=== PATIENT | female | born 1955 | race Caucasian/White ===

== ENCOUNTER 2018-02-18 10:21 | Inpatient (IN) | payer BC ==
--- NOTE | 2018-02-10 10:55 | HP ---
HISTORY AND PHYSICAL: DATE OF ADMISSION: 02/18/18 DATE OF OFFICE VISIT: 02/10/18 DATE OF SURGERY: 02/18/18 SURGEON: Tammy Russo MD* (dictated by GALILEA Stone). PROCEDURE: Right total knee arthroplasty. CHIEF COMPLAINT: Right knee pain. HISTORY OF PRESENT ILLNESS: Ms. Quijano is a 62-year-old female with continued complaints of right knee pain. She has failed conservative treatment and elected to proceed with a right total knee arthroplasty, which is scheduled for 02/18/18. PAST MEDICAL HISTORY: 1. Hypertension. 2. Hypothyroidism. PAST SURGICAL HISTORY: 1. x3. 2. Cholecystectomy. 3. Left knee scope. CURRENT MEDICATIONS: 1. Levothyroxine 25 mcg daily. 2. Cozaar 50 mg daily. 3. Hydrochlorothiazide 25 mg daily. 4. Ibuprofen as needed. ALLERGIES: 1. BACTRIM. 2. PENICILLIN. FAMILY HISTORY: Leukemia and coronary artery disease. SOCIAL HISTORY: A 62-year-old female, she lives with her son. She does not smoke or use drugs. Uses occasional alcohol. REVIEW OF SYSTEMS: A complete 14-point review of systems was reviewed with the patient, is positive for hypothyroidism. She denies history of DVT, PE, hepatitis, HIV, or anesthesia problems. PHYSICAL EXAMINATION GENERAL: She is well-developed, well-nourished, in no acute distress. VITAL SIGNS: She stands 5 feet 5 inches tall, weighs 200 pounds. Blood pressure is 128/84, heart rate 56. HEENT: Normocephalic, atraumatic. NECK: Supple. No palpable lymph nodes. PULMONARY: The lungs are clear to auscultation bilaterally. CARDIAC: Regular rate and rhythm. Strong S1 and S2. ABDOMEN: Soft, nontender, and nondistended. MUSCULOSKELETAL: Right lower extremity skin is intact. There are no open wounds or abrasions. There is a moderate joint effusion. There is a valgus deformity of the right knee. She has some tenderness over the lateral joint line. Range of motion is 5 to 125 degrees with patellofemoral crepitus. The valgus deformity is 17 degrees on the right. She has 2+ dorsalis pedis pulses and intact sensation. Her lower extremity muscle group strengths are intact at 5 /5. NEUROLOGIC: She is alert and oriented x3. ASSESSMENT AND PLAN: Ms. Quijano is a 62-year-old female with end-stage osteoarthritis of the right knee. She has failed conservative treatment and elected to proceed with a right total knee arthroplasty. The surgery is scheduled for 02/18/18. Dr. Russo discussed the risks and benefits of the surgery at today's visit. All of her questions were answered. She will follow up with Dr. Russo in 2 weeks after the surgery. GALILEA STONE [id number]/[facility] #: [id number] MTDRandall
[~2018-02-18 10:21] MED LIST: Buffered Lidocaine 0.9% SYRIN* 5 ML/SYR SYRINGE INTRADERM ONE
[2018-02-18] MEDS ORDERED: Midazolam* 1 MG/ML 2 ML VIAL (2 MG) ONE ×2 (10:23→14:15)
[2018-02-18] MEDS ORDERED: fentaNYL* 50 MCG/ML 2 ML VIAL (100 MCG VIAL) ONE (10:23)
[2018-02-18] MEDS ORDERED: Clindamycin 900 MG IVPREMIX(* 900 MG/50 ML SDV IV ONE (10:38)
[2018-02-18] MEDS ORDERED: HYDROmorphone INJ* 0.5 MG/0.5 ML SYRINGE ONE (11:29)
[2018-02-18] MEDS ORDERED: Tranexamic Acid 1,000 MG/10 ML 1,000 MG in NS 0.9% 100 ML* 100 ML IV ONE (12:30)
[2018-02-18] MEDS ORDERED: Lidocaine 2% PF * 5 ML VIAL ONE ×2 (12:55→13:42)
[2018-02-18] MEDS ORDERED: ROPIVACAINE 5 MG/ML 30 ML BTL (0.5%) ONE ×2 (12:55→14:25)
[2018-02-18] MEDS ORDERED: Ropivacaine (OR use only) 2 MG/ML 10 ML ONE (13:05)
[2018-02-18] MEDS ORDERED: Bupivacaine-MPF SPINAL* 7.5 MG/ML - 2ML AMP ONE (13:43)
[2018-02-18] MEDS ORDERED: Bupivacaine 0.5% PF 10 ML VIAL INJ ONE (14:07)
[2018-02-18] MEDS ORDERED: KETAMINE HCL* 50 MG/ML 10 ML VIAL ONE (14:18)
[2018-02-18] MEDS ORDERED: Sterile Water for Inj* 10 ML ONE (14:18)
[2018-02-18] MEDS ORDERED: Naloxone* 0.4 MG/ML 1 ML VIAL IV PRN (14:36)
[2018-02-18] MEDS ORDERED: Acetaminophen IV 1GM/100ML * 1,000 MG/100 ML VIAL IVPB ONE (14:36)
[2018-02-18] MEDS ORDERED: DiMENhydriNATE IV* 50 MG/ML VIAL IV PUSH PRN (14:36)
[2018-02-18] MEDS ORDERED: HYDROmorphone INJ* 0.5 MG/0.5 ML SYRINGE IV PRN (14:36)
[2018-02-18] MEDS ORDERED: Propofol* 500 MG/50 ML BTL ONE (15:19)
[2018-02-18] MEDS ORDERED: Acetaminophen IV 1GM/100ML * 100 ML ONE (15:43)
[2018-02-18] MEDS ORDERED: oxyCODONE/Acetamin 5/325 MG* TAB PO PRN (16:14)
[2018-02-18] MEDS ORDERED: Ondansetron TAB* 4 MG PO PRN (16:14)
[2018-02-18] MEDS ORDERED: diPHENhydraMINE IV* 50 MG/ML 1 ml VIAL (BENADRYL) IV PRN (16:14)
[2018-02-18] MEDS ORDERED: Cyclobenzaprine TAB* 10 MG PO PRN (16:14)
[2018-02-18] MEDS ORDERED: Bisacodyl SUPP* 10 MG SUPP PR PRN (16:14)
[2018-02-18] MEDS ORDERED: Polyethylene Glycol 3350* 17 GM PACKET PO PRN (16:14)
[2018-02-18] MEDS ORDERED: Magnesium Hydroxide LIQ* 30 ML UDC PO PRN (16:14)
[2018-02-18] MEDS ORDERED: Albuterol HFA INHALER* 8 gm MDI INH PRN (16:19)
[2018-02-18] MEDS ORDERED: Acetaminophen TAB* 325 MG PO SCH (17:00)
--- NOTE | 2018-02-18 17:11 | RAD ---
Indication: Bipolar right knee arthroplasty. 2 views of the right knee demonstrates bipolar right knee arthroplasty in satisfactory position. No loosening is noted. INDICATION: Right knee arthroplasty in satisfactory position.
[2018-02-18] MEDS ORDERED: oxyCODONE TAB* 5 MG TAB ONE (19:50)
[2018-02-18] MEDS: oxyCODONE TAB* 5 MG TAB PO PRN (19:54)
[2018-02-18] MEDS: Warfarin TAB(*) 6 MG PO ONE ×2 (21:10→22:59)
[2018-02-18] MEDS: Ondansetron INJ* 2 MG/ML VIAL IV PRN (21:11)
[2018-02-18] MEDS: Morphine INJ* 2 MG/ML 1 ML SYRINGE (TWO MG - NEW SYRINGE VERSION) IV PRN (21:11)
[2018-02-18] MEDS: Magnesium Hydroxide LIQ* 30 ML UDC PO SCH ×2 (21:11→21:31)
[2018-02-18] MEDS: Docusate CAP* 100 MG PO SCH ×2 (21:11→21:32)
[2018-02-18] MEDS: Acetaminophen TAB* 325 MG PO SCH (22:59)
[2018-02-18] MEDS: Clindamycin 600 MG IVPREMIX(* 600 MG/50 ML SDV IV SCH (22:59)
[2018-02-19] MEDS: Morphine INJ* 2 MG/ML 1 ML SYRINGE (TWO MG - NEW SYRINGE VERSION) IV PRN (00:26)
[2018-02-19] MEDS: oxyCODONE TAB* 5 MG TAB PO PRN ×4 (03:10→22:55)
[2018-02-19] MEDS: Ondansetron INJ* 2 MG/ML VIAL IV PRN ×2 (03:11→11:54)
--- NOTE | 2018-02-19 04:20 | CONS ---
CONSULTATION NOTE: DATE OF CONSULT: 02/18/18 CHIEF COMPLAINT/REASON FOR CONSULT: Hypertension and hypothyroidism, status post right knee total arthroplasty. HISTORY OF PRESENT ILLNESS: The patient is a 62-year-old lady with a history of hypertension and hypothyroidism who has had continued complaints of right knee pain and has failed conservative treatment and has elected to proceed with right total knee arthroplasty and currently a few hours postprocedure in PACU. PAST MEDICAL HISTORY: Hypertension, hypothyroidism. PAST SURGICAL HISTORY: x3, cholecystectomy, left knee scope. MEDICATIONS: Her home medications are: 1. Losartan 50 mg p.o. q.a.m. 2. Synthroid 75 mcg p.o. q.a.m. 3. Ibuprofen 400 to 600. 4. HCTZ 25 mg p.o. q.a.m. 5. Albuterol inhalation 1 puff inhalation q.6 p.r.n. FAMILY HISTORY: Leukemia in both parents and coronary artery disease in her sister. SOCIAL HISTORY: She is a 62-year-old lady who lives with her son. She does not smoke nor use drugs and mentions that she occasionally drinks alcohol socially. REVIEW OF SYSTEMS: She denied any recent headaches, dizziness, fever, chills, nausea, vomiting, chest pain, shortness of breath, increased cough. No sputum production, abdominal pain, diarrhea, constipation, pain and/or increased frequency on urination, myalgias, arthralgias, throat pain, or new skin lesions. The rest of the 14-point review of systems is otherwise unremarkable. PHYSICAL EXAMINATION: Reveals the most recent vital signs of records with blood pressure of 129/73, 53 beats per minute heart rate, 13 per minute respiratory rate, saturating at 99%. General Appearance: The patient is awake , alert, and oriented x3, not in acute distress. HEENT: Normocephalic, atraumatic. PERRLA. Extraocular muscles intact. Negative for icterus. Moist oral mucosa. Negative throat erythema. Neck is soft, supple with no cervical lymphadenopathy. No JVD. Heart: S1, S2 within normal limits. Regular rate and rhythm. No murmurs, rubs, and gallops. Chest: Clear to auscultation bilaterally. Good air entry. No wheezes, rales, and rhonchi. Abdomen is soft , nondistended, nontender. Normoactive bowel sounds x4 Q. Extremities: No cyanosis, clubbing with right knee with postoperative brace in place. Psychiatric: No active psychosis, depression, suicidal nor homicidal ideations. Skin is warm to touch. LABORATORY DATA/DIAGNOSTIC STUDIES: Most recent and pertinent laboratories drawn on 02/10/18 shows sodium and potassium that were found to be normal. BUN and creatinine were normal. LFTs were found to be normal. TSH was found to be normal. CBC shows WBC, H and H, and platelet count, which were all normal. ASSESSMENT AND PLAN: Are as follows: 1. Status post right total knee arthroplasty. We will defer pain management with Orthopedics as well as subsequent management. 2. Hypertension. I agree with restarting HCTZ tomorrow and if blood pressure is mildly elevated or above her baseline, certainly she can be restarted on her losartan, especially when the effect of sedation has passed. 3. Hypothyroidism. Continue Synthroid. TSH was reassuring last time it was checked. 4. DVT prophylaxis. The patient is placed on warfarin with low dose Lovenox subcu transition and we will defer with Orthopedics. 5. Disposition. For PT/OT eval, which is currently pending and we will defer with orthopedics team. Thank you for having us participate for Ms. Quijano' care and management. We will follow along with you. Please call us with any questions. [id number]/[facility] #: [id number] DREW
[2018-02-19] MEDS: Levothyroxine TAB* 25 MCG TAB PO SCH (06:40)
[2018-02-19] MEDS: Clindamycin 600 MG IVPREMIX(* 600 MG/50 ML SDV IV SCH ×2 (06:42→15:43)
[2018-02-19 06:57] LABS: Hematocrit 36 % (35-47); Hemoglobin 12.5 g/dl (12.0-16.0); Mean Platelet Volume 6.6 um3 (7.4-10.4); Platelet Count 246 10^3/ul (150-450)
[2018-02-19 07:07] LABS: INR 0.98 (0.77-1.02)
[2018-02-19] MEDS: Acetaminophen TAB* 325 MG PO SCH ×4 (08:32→22:55)
[2018-02-19] MEDS: Magnesium Hydroxide LIQ* 30 ML UDC PO SCH ×2 (09:49→20:31)
[2018-02-19] MEDS: Docusate CAP* 100 MG PO SCH ×2 (09:49→20:30)
--- NOTE | 2018-02-19 10:41 | PN ---
Progress Note - Progress Note Date of Service: 02/19/18 SOAP: Subjective: []Patient seen OOB in chair. She has been nauseous. Denies dizziness, CP, SOB. Knee pain is well controlled. Objective: []General: NAD RLE: Dressing CDI, thigh is soft, DF/PF intact. DP2+, sensation intact distally BL calves supple and nontender without erythema, edema or palpable cords Assessment: [] POD 1 S/P Right total knee arthroplasty Plan: []WBAT PT/OT Lovenox, coumadin 8 mg Laboratory Last Values Hgb 12.5 g/dl (12.0-16.0) 02/19/18 06:28 Hct 36 % (35-47) 02/19/18 06:28 Plt Count 246 10^3/ul (150-450) 02/19/18 06:28 MPV 6.6 um3 (7.4-10.4) L 02/19/18 06:28 INR (Anticoag Therapy) 0.98 (0.77-1.02) 02/19/18 06:28 Sodium 137 mmol/L (135-145) 02/19/18 06:28 Potassium 3.2 mmol/L (3.5-5.0) L 02/19/18 06:28 Chloride 99 mmol/L (101-111) L 02/19/18 06:28 Carbon Dioxide 30 mmol/L (22-32) 02/19/18 06:28 Anion Gap 8 mmol/L (2-11) 02/19/18 06:28 BUN 14 mg/dL (6-24) 02/19/18 06:28 Creatinine 0.56 mg/dL (0.51-0.95) 02/19/18 06:28 Est GFR ( Amer) 131.9 (>60) 02/19/18 06:28 Est GFR (Non-Af Amer) 109.0 (>60) 02/19/18 06:28 BUN/Creatinine Ratio 25.0 (8-20) H 02/19/18 06:28 Glucose 145 mg/dL (70-100) H 02/19/18 06:28 Calcium 8.8 mg/dL (8.6-10.3) 02/19/18 06:28 Vital Signs Temp 99.2 F 08/22/18 07:22 Pulse 65 02/19/18 07:22 Resp 18 02/19/18 09:40 BP 130/70 02/19/18 07:22 Pulse Ox 93 02/19/18 07:22 Intake & Output 02/18/18 02/19/18 02/19/18 18:59 06:59 18:59 Intake Total 1100 600 Output Total 500 875 Balance 600 -275 Weight 202 lb 9.6 oz Intake: IV Fluids 1100 300 LR 1100 300 Oral 300 Output: Anglin 500 875 Other: # Bowel Movements 0
--- NOTE | 2018-02-19 10:45 | OP ---
DATE OF OPERATION: 02/18/18 - ROOM #347 DATE OF : 51 ATTENDING SURGEON: Tammy Russo MD ELDERLY SITTER: GALILEA Guadarrama. Ms. East did help throughout the procedure with preparation of the leg, wound retraction, manipulation of the knee, and wound closure. ANESTHESIOLOGIST: Dr. Melissa. ANESTHESIA: Adductor canal block with spinal. PRE-OP DIAGNOSIS: Severe end-stage degenerative osteoarthritis of the right knee joint. POST-OP DIAGNOSIS: Severe end-stage degenerative osteoarthritis of the right knee joint. OPERATIVE PROCEDURE: Right total knee arthroplasty. BRIEF HISTORY/INDICATION: Ms. Quijano is a 62-year-old female with years of increasingly severe right knee pain. Radiographs showed [id number] arthritis. She failed conservative treatment with the anti-inflammatories, pain medication, intraarticular injections, and physical therapy. Due to continued pain, she elected to undergo a right total knee arthroplasty. Informed consent was obtained from the patient. She understood the risks of surgery included, but were not limited to, bleeding, infection, damage to nearby structures, continued pain, need for further surgery, intraoperative fracture, nerve palsy, hardware failure or loosening, knee stiffness, loss of motion, stroke, heart attack, blood clot, and . She wished to proceed. INTRAOPERATIVE FINDINGS: Intraoperatively, the patient was noted to have severe end-stage arthritis in all three compartments. TOURNIQUET TIME: 47 minutes. COMPLICATIONS: None. ESTIMATED BLOOD LOSS: 200 cc. SPECIMEN: Bone and cartilage from the right knee joint sent to pathology. HARDWARE USED: This is cemented [employer] total knee arthroplasty hardware. Two packages of Simplex bone cement. For the femur, a size 5 right narrow Oxinium posterior stabilized femoral component. For the tibia, a size 3 right Lisbeth II tibial base plate. For the patella, a 29-mm 3-peg all poly patella with 7.5 thickness and for the insert, a 9-mm posterior stabilized articular insert, size 3-4. DESCRIPTION OF PROCEDURE: Ms. Quijano was identified in the preanesthesia unit. Her right lower extremity was marked as the correct operative side. Informed consent was signed and placed in the chart. The patient was taken to the operating room and placed under spinal anesthesia. Adductor canal block was placed. Anglin catheter was placed. Tourniquet was placed on the right thigh. Right lower extremity was prepped and draped in the usual sterile fashion. Preop time-out was made to correctly identify the patient, side, and site. Appropriate perioperative antibiotics were given within 1 hour of incision. Tourniquet was inflated and total tourniquet time for this procedure was 47 minutes. A midline incision was made with a 10-blade and carried down to the extensor mechanism. A new 10-blade was used to make a standard medial parapatellar arthrotomy. Patella was subluxed laterally. Electrocautery was used to subperiosteally elevate the soft tissue off the superomedial tibia to the mid sagittal plane. The knee was flexed up. The anterior horn of the lateral meniscus and ACL were sharply released. A drill was used to enter the distal femur. Intramedullary distal femoral cutting guide was pinned on the distal femur. Oscillating saw was used to make the distal femoral cut. Next, the external rotation guide was pinned on the distal femur. Distal femur was sized to a size 5. Size 5 multi-cutting jig was pinned on the distal femur. Oscillating saw was used to make the appropriate 4 chamfer cuts. The PCL was completely released. Tibia was subluxed anteriorly. Extramedullary tibial cutting guide was pinned on the proximal tibia. Oscillating saw was used to make the proximal tibial cut perpendicular to the mechanical axis of the tibia. The bone was carefully removed. The knee was brought out into full extension. Spacer block had good fit with excellent medial and lateral ligamentous balancing. Flexion and extension gaps were well balanced. The knee was flexed up. Lamina planning feeder was placed both medially and laterally. Any remaining meniscus was carefully removed using electro- cautery. Curved osteotome was used to remove any posterior osteophytes. Tibial tray and drop macy were placed and once again confirmed a satisfactory tibial cut. A narrow 5 right femoral trial was impacted onto the distal femur and had good fit and stability. The box for the posterior stabilized implant was prepared using a reamer and box cut osteotome. A size 3 tibial tray trial with a 9-mm insert trial was placed and the knee was taken through a range of motion. The knee had full extension to 130 degrees of flexion. There was satisfactory patellofemoral tracking. The patella was everted. A 7 mm of patellar bone and cartilage was carefully removed using an oscillating saw. Patella was sized to a size 29. Three peg holes were drilled through the size 29 guide. A 29 trial patella with 7.5 thickness was placed and the knee was taken through a range of motion. There was satisfactory patellofemoral tracking. All trials were carefully removed. The tibia was subluxed anteriorly and sized to a size 3. Proximal tibia was prepared using a size 3 keel punch. All bony cut surfaces were copiously irrigated and dried. Final implants were cemented into place starting with the tibia followed by the femur and last the patella. A 9 mm insert trial was placed and the knee was brought out into full extension. Tourniquet was turned down at 47 minutes. Electrocautery was used to obtain meticulous hemostasis. The knee was copiously irrigated with sterile saline. Once the cement had fully cured, the insert trial was removed. Any excess cement was removed from around the capsule and hardware. Final insert chosen was a 9 mm posterior stabilized articular insert size 3-4. This was locked into position on the tibial tray. Stability of the insert was checked and rechecked and noted to be stable. The knee was copiously irrigated with sterile saline. The extensor tendon was closed using interrupted #1 Vicryl. The rest of the incision was closed in a layered fashion using 0 and 2-0 Vicryls. The skin was closed using running 3-0 nylon suture. Sterile Xeroform, 4x4s, and Webril were used to cover the incision. Nnamdi wrap and cold pack were placed over this. The patient's anesthesia was reversed without difficulty. She was taken to the PACU in stable condition. Intended weightbearing will be weightbearing as tolerated. Intended DVT prophylaxis will be Coumadin with a Lovenox bridge. [id number]/[facility] #: [id number] [facility] CENTERRandall
[2018-02-19] MEDS: Hydrochlorothiazide TAB* 25 MG PO SCH (11:42)
[2018-02-19] MEDS: Losartan TAB* 25 MG PO SCH (11:42)
[2018-02-19] MEDS: oxyCODONE/Acetamin 5/325 MG* TAB PO PRN (12:14)
[2018-02-19] MEDS: Enoxaparin(*) 30 MG/0.3 ML SYR SUBCUT SCH (12:14)
[2018-02-19] MEDS ORDERED: Warfarin TAB(*) 4 MG PO ONE (17:00)
[2018-02-20] MEDS: Levothyroxine TAB* 25 MCG TAB PO SCH (06:04)
[2018-02-20] MEDS: oxyCODONE TAB* 5 MG TAB PO PRN ×2 (06:04→11:43)
[2018-02-20 07:02] LABS: Hematocrit 35 % (35-47); Mean Platelet Volume 6.5 um3 (7.4-10.4); Platelet Count 245 10^3/ul (150-450)
[2018-02-20 07:18] LABS: INR 1.23 (0.77-1.02)
[2018-02-20] MEDS: Hydrochlorothiazide TAB* 25 MG PO SCH (08:12)
[2018-02-20] MEDS: Losartan TAB* 25 MG PO SCH (08:13)
[2018-02-20] MEDS: Acetaminophen TAB* 325 MG PO SCH (08:13)
[2018-02-20] MEDS: Docusate CAP* 100 MG PO SCH (08:13)
[2018-02-20] MEDS: oxyCODONE/Acetamin 5/325 MG* TAB PO PRN (08:17)
[2018-02-20] MEDS: Magnesium Hydroxide LIQ* 30 ML UDC PO SCH (08:27)
[2018-02-20] MEDS ORDERED: Potassium Chlor TAB* 20 MEQ TAB.ER PO SCH (09:00)
[2018-02-20 09:11] VITALS: BP 132/64
--- NOTE | 2018-02-20 11:27 | PN ---
Progress Note - Progress Note Date of Service: 02/20/18 SOAP: Subjective: []Patient seen at bedside. She is feeling well with no chest pain, shortness of breath, dizziness, nausea. She desires DC home Objective: []General: NAD RLE: Dressing changed by Dr. Russo this morning without complication, dressing CDI, thigh is soft, DF/PF intact. DP2+, sensation intact distally BL calves supple and nontender without erythema, edema or palpable cords Assessment: [] POD 2 S/P Right total knee arthroplasty Plan: []WBAT PT/OT Lovenox, coumadin 8 mg Vital Signs Temp 97.5 F 02/20/18 09:10 Pulse 82 02/20/18 09:10 Resp 14 02/20/18 10:15 BP 132/64 02/20/18 09:10 Pulse Ox 97 02/20/18 05:32 Intake & Output 02/19/18 02/20/18 02/20/18 18:59 06:59 18:59 Intake Total 600 589 Output Total 200 1200 350 Balance -200 -600 239 Intake: IV Fluids 289 LR 289 Oral 600 300 Output: Urine 200 1200 350 Other: Estimated Void Medium # Voids 2 Laboratory Last Values Hgb 12.0 g/dl (12.0-16.0) 02/20/18 06:54 Hct 35 % (35-47) 02/20/18 06:54 Plt Count 245 10^3/ul (150-450) 02/20/18 06:54 MPV 6.5 um3 (7.4-10.4) L 02/20/18 06:54 INR (Anticoag Therapy) 1.23 (0.77-1.02) H 02/20/18 06:54 Sodium 137 mmol/L (135-145) 02/19/18 06:28 Potassium 3.1 mmol/L (3.5-5.0) L 02/20/18 06:43 Chloride 99 mmol/L (101-111) L 02/19/18 06:28 Carbon Dioxide 30 mmol/L (22-32) 02/19/18 06:28 Anion Gap 8 mmol/L (2-11) 02/19/18 06:28 BUN 14 mg/dL (6-24) 02/19/18 06:28 Creatinine 0.56 mg/dL (0.51-0.95) 02/19/18 06:28 Est GFR ( Amer) 131.9 (>60) 02/19/18 06:28 Est GFR (Non-Af Amer) 109.0 (>60) 02/19/18 06:28 BUN/Creatinine Ratio 25.0 (8-20) H 02/19/18 06:28 Glucose 145 mg/dL (70-100) H 02/19/18 06:28 Calcium 8.8 mg/dL (8.6-10.3) 02/19/18 06:28
[2018-02-20] MEDS: Enoxaparin(*) 30 MG/0.3 ML SYR SUBCUT SCH (11:43)
--- NOTE | 2018-02-21 11:20 | DS ---
DISCHARGE SUMMARY: DATE OF ADMISSION: 02/18/18 DATE OF DISCHARGE: 02/20/18 SURGEON: Tammy Russo MD * (DICTATED BY GALILEA SHIN) ASSOCIATE MERCHANDISE PLANNER: GALILEA Guadarrama OPERATIVE PROCEDURE: Right total knee arthroplasty. HISTORY: Ms. Quijano is a 62-year-old female with years of increasingly severe right knee pain. She failed conservative therapy and elected to undergo right total knee arthroplasty. HOSPITAL COURSE: The patient was admitted to [facility] on . She underwent right total knee arthroplasty without complications. Postop day 1, she is well-appearing, in no acute distress. Dressing is clean, dry, and intact. Thigh was soft. Dorsiflexion and plantarflexion intact. Dorsalis pedis pulse 2+. Sensation intact distally. Hemoglobin 12.5, hematocrit 36. Temp 99.2, pulse 65, respiratory rate 18, blood pressure 130/70, pulse ox 93%. Labs, hemoglobin 12.5, hematocrit 36. Potassium 3.2. Postop day 2, the patient was well-appearing, in no acute distress. Dressing was changed by Dr. Russo this morning without complication. Dorsiflexion and plantarflexion intact. Sensation intact distally. Hemoglobin 12.0, hematocrit 35. INR 1.23. Potassium 3.1. She did receive 20 mEq of potassium while in-house. She seemed to be stable for discharge home. DISCHARGE MEDICATIONS: 1. Levothyroxine 25 mcg p.o. q.a.m. 2. Hydrochlorothiazide 25 mg p.o. q.a.m. 3. Losartan 50 mg p.o. q.a.m. 4. Albuterol 1 puff inhale q.6 hours p.r.n. New medications: 1. Acetaminophen 975 mg p.o. q.8 hours p.r.n. 2. Docusate 100 mg p.o. b.i.d. 3. Percocet 5/325 one to two tabs every 4 to 6 hours as needed. Maximum daily dose is 10. 4. Warfarin 2 mg tabs 1 to 3 tabs daily dose depends on INR. 5. Potassium 20 mEq daily to be taken starting on 02/21/18 until Saturday, when we can recheck the potassium. DISCHARGE PLAN: Weightbearing as tolerated. Coumadin dosing 02/20/18, 6 mg, through 02/23/18, 4 mg each day, and 02/24/18, recheck INR for further adjusting instruction. Repeat potassium within 3 days. Take potassium 20 mEq daily until 02/24/18, then when recheck is done. Await further instruction at this time. Pain control with Percocet 5/325 one to two tabs every 4 to 6 hours as needed for pain. Maximum daily dose is 10. Follow up with Dr. Russo in 10 to 14 days. GALILEA SHIN [id number]/[facility] #: [id number] [facility]
== END 2018-02-20 13:30 | disposition home or self-care (01) | DRG 302 ==
LOC: AA 10:21 → SSU 20:49
PROVIDERS: ADMIT Orthopaedic Surgery Adult Reconstructive Orthopaedic Surgery; ATTEND Orthopaedic Surgery Adult Reconstructive Orthopaedic Surgery
PROC: 0SRC069 Replacement of Right Knee Joint with Oxidized Zirconium on Polyethylene Synthetic Substitute, Cemented, Open Approach (ICD-10-PCS; principal; 2018-02-18)
DX: M17.11 Unilateral primary osteoarthritis, right knee (principal); I10 Essential (primary) hypertension; E03.9 Hypothyroidism, unspecified; M21.061 Valgus deformity, not elsewhere classified, right knee; J30.2 Other seasonal allergic rhinitis; M25.761 Osteophyte, right knee; Z90.49 Acquired absence of other specified parts of digestive tract; Z88.3 Allergy status to other anti-infective agents; Z88.0 Allergy status to penicillin; Z80.6 Family history of leukemia; Z82.49 Family history of ischemic heart disease and other diseases of the circulatory system; Z72.89 Other problems related to lifestyle; Z79.01 Long term (current) use of anticoagulants
CPT/HCPCS: 36415; 80048; 84132; 85014; 85018; 85049; 85610; A9270-GY; J1170; J1650; J2250; J2270; J2405; J2704; J2795; J3010